=== PATIENT | female | born 1995 | race Two or more races ===

== ENCOUNTER 2018-02-14 23:12 | Emergency (ER) | payer SELFPAY ==
[~2018-02-14] VITALS: Ht 165.1 cm; Wt 107.0 kg
[2018-02-15] MEDS ORDERED: IBUPROFEN 600MG TABLET PO ONE (07:00)
[2018-02-15 08:54] VITALS: BP 94/52
== END 2018-02-15 08:57 | disposition home or self-care (01) ==
LOC: ER 23:12
DX: S80.01XA Contusion of right knee, initial encounter (principal); F17.200 Nicotine dependence, unspecified, uncomplicated; F12.10 Cannabis abuse, uncomplicated; Z88.0 Allergy status to penicillin; Z91.040 Latex allergy status; W10.0XXA Fall (on)(from) escalator, initial encounter; Y93.89 Activity, other specified; Y92.89 Other specified places as the place of occurrence of the external cause; Y99.8 Other external cause status
CPT/HCPCS: 73562; 81025; 99284

== ENCOUNTER 2019-08-02 22:15 | Emergency (ER) | payer MEDICAID ==
[~2019-08-02] VITALS: Ht 165.1 cm; Wt 114.0 kg
[2019-08-03] MEDS ORDERED: KETOROLAC 60MG/2ML VIAL IM ONE (01:15)
[2019-08-03] MEDS ORDERED: DEXAMETHASONE 10 MG/ML VIAL IM ONE (01:15)
[2019-08-03 03:06] VITALS: BP 121/71
== END 2019-08-03 03:49 | disposition home or self-care (01) ==
LOC: ER 22:15
DX: J02.9 Acute pharyngitis, unspecified (principal); R59.0 Localized enlarged lymph nodes; M79.10 Myalgia, unspecified site; R51 Headache; R50.9 Fever, unspecified; F17.200 Nicotine dependence, unspecified, uncomplicated; Z88.1 Allergy status to other antibiotic agents; Z91.040 Latex allergy status
CPT/HCPCS: 87070; 87430; 96372; 99283; J1100; J1885